=== PATIENT | male | born 1960 | race Caucasian/White ===

== ENCOUNTER 2018-12-04 22:18 | Emergency (ER) | payer MEDICAID ==
[~2018-12-04] VITALS: Ht 182.9 cm; Wt 96.6 kg
[2018-12-04 23:14] VITALS: BP 130/75
== END 2018-12-05 02:30 | disposition left against medical advice (07) ==
LOC: ER 22:18
DX: R22.41 Localized swelling, mass and lump, right lower limb (principal); M25.551 Pain in right hip; Z53.21 Procedure and treatment not carried out due to patient leaving prior to being seen by health care provider